=== PATIENT | male | born 1985 | race American Indian/Alaskan Native ===

== ENCOUNTER 2018-09-12 03:04 | Emergency (ER) | payer OTHER ==
[2018-09-12 03:16] VITALS: BP 142/80
[2018-09-12] MEDS ORDERED: IBUPROFEN PO ONE (03:44)
[2018-09-12] MEDS ORDERED: KEFLEX PO ONE (03:44)
--- NOTE | 2018-09-12 03:49 | Emergency Department Report ---
ED Lower Extremity HPI - General Chief Complaint: Extremity Problem,Nontraumatic Stated Complaint: R ANKLE PAIN Source: patient Mode of arrival: Ambulatory Limitations: No Limitations - History of Present Illness Initial Comments: pt is a 89 y/o aam with hx right achilies repair who presents for surgical site pain and drainage , surgery was over 1 yr ago however pt states intermittent pus and drainage from wound pt does not haver diabetes states it was just slow to heal, pt symptoms are exacerbated by prolong standing walking , symptoms are improved with off loading and rest there is no fever no chills no numbness no swelling no open wound MD Complaint: other (right posterior mitzi surg site wound ) -: Gradual, year(s) (1) Injury: Ankle: Right Type of Injury: other (surg site ) Place: home Severity: moderate Severity scale (0 -10): 4 Improves With: nothing Worsens With: weight bearing, movement, palpation Context: other (surgical site ) Associated Symptoms: unable to bear weight, other (itching ) - Related Data Previous Rx's Medication Instructions Recorded Last Taken Type Cephalexin [Keflex] 500 mg PO QID 10 Days #40 capsule 09/12/18 Unknown Rx Ibuprofen 800 mg PO TID PRN #30 tablet 09/12/18 Unknown Rx Allergies Allergy/AdvReac Type Severity Reaction Status Date / Time No Known Allergies Allergy Unverified 09/12/18 03:12 ED Review of Systems ROS: Stated complaint: R ANKLE PAIN Other details as noted in HPI Constitutional: denies: chills, fever Eyes: denies: eye pain, eye discharge, vision change ENT: denies: ear pain, throat pain Respiratory: denies: cough, shortness of breath, wheezing Cardiovascular: denies: chest pain, palpitations Endocrine: no symptoms reported Gastrointestinal: denies: abdominal pain, nausea, diarrhea Genitourinary: denies: urgency, dysuria Musculoskeletal: other (raing ankle postop site lesion ). denies: back pain, joint swelling, arthralgia Skin: other (right ankle lesion as noted above ). denies: rash, lesions Neurological: denies: headache, weakness, paresthesias Psychiatric: denies: anxiety, depression Hematological/Lymphatic: denies: easy bleeding, easy bruising ED Past Medical Hx - Past Medical History Previous Medical History?: No - Surgical History Past Surgical History?: Yes Additional Surgical History: R ankle sx 2012 - Social History Smoking Status: Current Every Day Smoker Substance Use Type: Alcohol - Medications Home Medications: Home Medications Medication Instructions Recorded Confirmed Last Taken Type Cephalexin [Keflex] 500 mg PO QID 10 Days #40 capsule 09/12/18 Unknown Rx Ibuprofen 800 mg PO TID PRN #30 tablet 09/12/18 Unknown Rx ED Physical Exam - General Limitations: No Limitations General appearance: alert, in no apparent distress - Head Head exam: Present: atraumatic, normocephalic - Eye Eye exam: Present: normal appearance, PERRL, EOMI Pupils: Present: normal accommodation - ENT ENT exam: Present: mucous membranes moist - Neck Neck exam: Present: normal inspection, full ROM. Absent: tenderness, lymphadenopathy, thyromegaly - Respiratory Respiratory exam: Present: normal lung sounds bilaterally. Absent: respiratory distress, wheezes, stridor, chest wall tenderness - Cardiovascular Cardiovascular Exam: Present: regular rate, normal rhythm. Absent: systolic murmur, diastolic murmur, rubs, gallop - GI/Abdominal GI/Abdominal exam: Present: soft, normal bowel sounds. Absent: distended, tenderness, guarding, rebound, bruit, hernia - Rectal Rectal exam: Present: deferred - Extremities Exam Extremities exam: Present: normal inspection, full ROM, tenderness (right post ankle ), normal capillary refill. Absent: pedal edema, joint swelling, calf tenderness - Expanded Lower Extremity Exam Right Foot/Toe exam: Present: tenderness. Absent: swelling, abrasion, laceration, ecchymosis, deformity, crepidus, dislocation, erythema, amputation, puncture wound, calcaneal tenderness, nail avulsion, subungual hematoma Neuro vascular tendon exam: Present: no vascular compromise, abnormal 2-point discrimination. Absent: abnormal cap refill, motor deficit, sensory deficit, tendon deficit, foot drop Gait: Positive: observed and normal - Back Exam Back exam: Present: normal inspection, full ROM, muscle spasm. Absent: tenderness, CVA tenderness (R), CVA tenderness (L), paraspinal tenderness, vertebral tenderness, rash noted - Neurological Exam Neurological exam: Present: alert, oriented X3, CN II-XII intact, normal gait, motor sensory deficit, reflexes normal - Psychiatric Psychiatric exam: Present: normal affect, normal mood - Skin Skin exam: Present: warm, dry, intact, normal color. Absent: rash ED Course Vital Signs 09/12/18 09/12/18 03:13 03:16 Temperature 97.8 F Pulse Rate 83 Respiratory 18 18 Rate Blood Pressure 142/80 O2 Sat by Pulse 99 Oximetry ED Lower Extremity MDM - Lab Data Result diagrams: 09/12/18 04:06 Labs 09/12/18 04:06 WBC 7.2 RBC 4.54 Hgb 14.6 Hct 42.2 MCV 93 MCH 32 MCHC 35 H RDW 14.1 Plt Count 201 Lymph % (Auto) 36.8 H Casey % (Auto) 7.5 H Eos % (Auto) 1.3 Baso % (Auto) 0.5 Lymph # 2.7 Casey # 0.5 Eos # 0.1 Baso # 0.0 Seg Neutrophils % 53.9 Seg Neutrophils # 3.9 - Radiology Data Radiology results: report reviewed, image reviewed ROCEDURE: XR ANKLE 3+V RT TECHNIQUE: 3 views of the right ankle were obtained. HISTORY: ankle pain swelling COMPARISONS: None FINDINGS: The ankle mortise is well-maintained. There is no evidence of fracture. The soft tissues reveal swelling overlying the posterior aspect of the lower calf. IMPRESSION: No acute fracture identified. Soft tissue swelling overlying the dorsal aspect of the distal calf. Clinical correlation needed whether there is injury to the Achilles tendon.. This document is electronically signed by Travon Savage MD., September 12 2018 04:30:38 AM ET Transcribed By: RB Dictated By: TRAVON SAVAGE MD Electronically Authenticated By: TRAVON SAVAGE MD Signed Date/Time: 09/12/18431 DD/ 9 TD/TT: 09/12/18409 - Medical Decision Making this is cellulitis plan keflex , ibuprofen, follow up with General surgery Dr. Barber in 2-3 days pt verbalized agreement and understanding of same. pt is a/o x 3 ambulatory with steady gait. Critical care attestation.: If time is entered above; I have spent that time in minutes in the direct care of this critically ill patient, excluding procedure time. ED Disposition Clinical Impression: Cellulitis Qualifiers: Site of cellulitis: extremity Site of cellulitis of extremity: lower extremity Laterality: right Qualified Code(s): L03.115 - Cellulitis of right lower limb Disposition: DC-01 TO HOME OR SELFCARE Is pt being admited?: No Does the pt Need Aspirin: No Condition: Stable Instructions: Cellulitis (ED) Prescriptions: Ibuprofen 800 mg PO TID PRN #30 tablet PRN Reason: pain Cephalexin [Keflex] 500 mg PO QID 10 Days #40 capsule [facility]: [facility]Primary Care Provider[facility] - 3-5 Days VAHE BARBER MD [Staff Physician] - 3-5 Days Forms: Work/School Release Form(ED) Time of Disposition: 05:00
[2018-09-12 04:24] LABS: Basophils % (Auto) 0.5 % (0.0-1.8); Eosinophils # (Auto) 0.1 K/mm3 (0.0-0.4); Eosinophils % (Auto) 1.3 % (0.0-4.3); Hematocrit 42.2 % (35.5-45.6); Hemoglobin 14.6 gm/dl (11.8-15.2); Lymphocytes # (Auto) 2.7 K/mm3 (1.2-5.4); Lymphocytes % (Auto) 36.8 % (13.4-35.0); Mean Corpuscular HGB Conc 35 % (32-34); Mean Corpuscular Volume 93 fl (84-94); Monocytes # (Auto) 0.5 K/mm3 (0.0-0.8); Monocytes % (Auto) 7.5 % (0.0-7.3); Platelet Count 201 K/mm3 (140-440); Red Blood Count 4.54 M/mm3 (3.65-5.03); Red Cell Distribution Width 14.1 % (13.2-15.2)
--- NOTE | 2018-09-12 04:32 | XRay Report ---
PROCEDURE: XR ANKLE 3+V RT TECHNIQUE: 3 views of the right ankle were obtained. HISTORY: ankle pain swelling COMPARISONS: None FINDINGS: The ankle mortise is well-maintained. There is no evidence of fracture. The soft tissues reveal swell ing overlying the posterior aspect of the lower calf. IMPRESSION: No acute fracture identified. Soft tissue swelling overlying the dorsal aspect of the distal calf. Clinical correlation needed whet her there is injury to the Achilles tendon.. This document is electronically signed by Peter Savage MD., September 12 2018 04:30:38 AM ET
== END 2018-09-12 05:06 | disposition home or self-care (01) ==
LOC: ED 03:04
DX: L03.115 Cellulitis of right lower limb (principal); F17.200 Nicotine dependence, unspecified, uncomplicated
CPT/HCPCS: 36415; 85025